=== PATIENT | female | born 1945 | race Caucasian/White ===

== ENCOUNTER 2017-03-31 06:29 | Day surgery (SDC) | payer OTHER ==
[~2017-03-31] VITALS: Ht 144.8 cm; Wt 69.5 kg
[~2017-03-31 06:29] MED LIST: SODIUM CHLORIDE 0.9% 1,000 ML IV ONE
[2017-03-31] MEDS ORDERED: MethylPREDNISolone SOD SUCC 125 MG/2 ML VIAL IVP ONE (08:45)
[2017-03-31] MEDS ORDERED: LIDOCAINE HCL 2% 30 ML JELLY TP ONE (12:04)
[2017-03-31] MEDS ORDERED: BENZOCAINE 20% 50 MCG/SPRAY 57 GM TP ONE (12:04)
[2017-03-31] MEDS ORDERED: LIDOCAINE HCL 4% 50 ML SOLUTION TP ONE (12:04)
[2017-03-31] MEDS ORDERED: FentaNYL CITRATE-PF 100 MCG/2 ML VIAL ONE (14:27)
[2017-03-31] MEDS ORDERED: MIDAZOLAM HCL 2 MG/2 ML VIAL ONE (14:27)
[2017-03-31] MEDS ORDERED: SODIUM CHLORIDE 0.9% 1,000 ML IV ONE (14:27)
[2017-03-31] MEDS ORDERED: MethylPREDNISolone SOD SUCC 125 MG/2 ML VIAL ONE (14:29)
[2017-03-31] MEDS ORDERED: OXYGEN THERAPY IH SCH (20:00)
== END 2017-03-31 10:25 | disposition home or self-care (01) ==
LOC: SURGERY 06:29
PROVIDERS: ATTEND Internal Medicine Critical Care Medicine
DX: J38.4 Edema of larynx (principal); B37.0 Candidal stomatitis
CPT/HCPCS: 31623; 31624; 71010; 87015 ×2; 87070; 87101; 87205; 87220; 88108; 88312; 93005; J2250; J2930; J3010; J7030